=== PATIENT | male | born 1950 | race African-American/Black ===

== ENCOUNTER 2019-10-14 03:11 | Inpatient (IN) | payer OTHER ==
[2019-10-14] MEDS ORDERED: MORPHINE 4 MG/ML SYR ONE ×3 (03:27→14:18)
[2019-10-14] MEDS ORDERED: ONDANSETRON 4 MG/2 ML VIAL ONE ×3 (03:27→17:43)
[2019-10-14] MEDS ORDERED: FAMOTIDINE 20 MG/2 ML VIAL IV ONE (03:42)
[2019-10-14] MEDS ORDERED: CIPROFLOXACIN 400mg IV 400 MG/200 ML BAG IV ONE (03:42)
[2019-10-14] MEDS ORDERED: METRONIDAZOLE 500mg IVPB 500 MG/100 ML BAG IV ONE (03:42)
[2019-10-14 03:49] LABS: Protime INR 1.11
[2019-10-14 03:51] LABS: Absolute Lymphocytes (CBC) 0.9 K/uL (0.7-4.9); Basophils % 0.2 % (0-1.3); Hematocrit 43.2 % (39.6-49.0); Lymphocytes % 4.9 % (15.3-44.8); MPV 8.4 fL (7.6-11.3); RBC Red Blood Cell Count 4.72 M/uL (4.33-5.43)
[2019-10-14 04:04] LABS: ALT/SGPT 28 U/L (12-78); AST/SGOT 22 U/L (15-37); Albumin 4.1 g/dL (3.4-5.0); Alkaline Phosphatase 138 U/L (45-117); BUN Blood Urea Nitrogen 10 mg/dL (7-18); Bicarbonate 28 mmol/L (21-32); Bilirubin Direct 0.2 mg/dL (0-0.2); Bilirubin Total 0.5 mg/dL (0.2-1.0); Glucose Level 173 mg/dL (74-106); HDL Cholesterol 71 mg/dL (40-60); LDL Cholesterol, Calculated 57 (<130); Magnesium 1.9 mg/dL (1.8-2.4); NT PRO-BNP 19 pg/mL (<125); Potassium 3.6 mmol/L (3.5-5.1); Protein, Total 7.7 g/dL (6.4-8.2); Sodium Level 140 mmol/L (136-145); Troponin (Emerg Dept Use Only) < 0.02 ng/mL (0.0-0.045)
[2019-10-14 05:28] LABS: Blood Morphology Comment NOT SEEN (NOT SEEN); Platelet Estimate ADEQ; Urine White Blood Cell Casts OK
[2019-10-14] MEDS ORDERED: NA CHLORIDE 0.9% 2,000 ML ONE (06:16)
[2019-10-14] MEDS ORDERED: HYDROMORPHONE HCL 1 MG/ML INJ ONE ×2 (06:16→07:26)
[2019-10-14] MEDS ORDERED: PIPER/TAZO/NS 3.375gm 3.375 GM/100 ML BAG ONE (06:16)
--- NOTE | 2019-10-14 06:17 | EDPHYS ---
Physician Documentation [facility] Name: Bong Hanson Age: 68 yrs Sex: Male : 1950 Arrival Date: 10/14/2019 Time: 03:13 Bed 7 Private MD: ED Physician Venu Keene HPI: 10/14 03:29 This 68 yrs old Black Male presents to ER via Ambulatory with complaints of Abdominal charlee Pain. 03:29 The patient presents with abdominal pain in the upper abdomen, in the lower abdomen. charlee Onset: The symptoms/episode began/occurred 1 day(s) ago. The symptoms do not radiate. Associated signs and symptoms: none. The symptoms are described as achy. Modifying factors: The symptoms are alleviated by nothing. Severity of pain: At its worst the pain was moderate. The patient has not experienced similar symptoms in the past. Historical: - Allergies: 03:20 No Known Allergies; rr5 - Home Meds: 03:20 valsartan oral oral [Active]; amlodipine oral [Active]; atorvastatin oral oral rr5 [Active]; Tylenol #4 Oral [Active]; - PMHx: 03:20 Hypertension; Hyperlipidemia; rr5 - PSHx: 03:20 Appendectomy; prostate removed; rr5 - Immunization history:: Adult Immunizations up to date. - Social history:: Smoking status: Patient/guardian denies using tobacco, Patient/guardian denies using alcohol, street drugs. - Family history:: not pertinent. - Ebola Screening: : Patient negative for fever greater than or equal to 101.5 degrees Fahrenheit, and additional compatible Ebola Virus Disease symptoms Patient denies exposure to infectious person Patient denies travel to an Ebola-affected area in the 21 days before illness onset. ROS: 03:29 Constitutional: Negative for fever, chills, and weight loss, Eyes: Negative for injury, charlee pain, redness, and discharge, ENT: Negative for injury, pain, and discharge, Neck: Negative for injury, pain, and swelling, Cardiovascular: Negative for chest pain, palpitations, and edema, Respiratory: Negative for shortness of breath, cough, wheezing, and pleuritic chest pain, Back: Negative for injury and pain, : Negative for injury, bleeding, discharge, and swelling, MS/Extremity: Negative for injury and deformity, Skin: Negative for injury, rash, and discoloration, Neuro: Negative for headache, weakness, numbness, tingling, and seizure, Psych: Negative for depression, anxiety, suicide ideation, homicidal ideation, and hallucinations, Allergy/Immunology: Negative for hives, rash, and allergies, Endocrine: Negative for neck swelling, polydipsia, polyuria, polyphagia, and marked weight changes, Hematologic/Lymphatic: Negative for swollen nodes, abnormal bleeding, and unusual bruising. 03:29 Abdomen/GI: Positive for abdominal pain. Exam: 03:29 Constitutional: This is a well developed, well nourished patient who is awake, alert, charlee and in no acute distress. Head/Face: Normocephalic, atraumatic. Eyes: Pupils equal round and reactive to light, extra-ocular motions intact. Lids and lashes normal. Conjunctiva and sclera are non-icteric and not injected. Cornea within normal limits. Periorbital areas with no swelling, redness, or edema. ENT: Nares patent. No nasal discharge, no septal abnormalities noted. Tympanic membranes are normal and external auditory canals are clear. Oropharynx with no redness, swelling, or masses, exudates, or evidence of obstruction, uvula midline. Mucous membranes moist. Neck: Trachea midline, no thyromegaly or masses palpated, and no cervical lymphadenopathy. Supple, full range of motion without nuchal rigidity, or vertebral point tenderness. No Meningismus. Chest/axilla: Normal chest wall appearance and motion. Nontender with no deformity. No lesions are appreciated. Cardiovascular: Regular rate and rhythm with a normal S1 and S2. No gallops, murmurs, or rubs. Normal PMI, no JVD. No pulse deficits. Respiratory: Lungs have equal breath sounds bilaterally, clear to auscultation and percussion. No rales, rhonchi or wheezes noted. No increased work of breathing, no retractions or nasal flaring. Back: No spinal tenderness. No costovertebral tenderness. Full range of motion. Male : Normal genitalia with no discharge or lesions. Skin: Warm, dry with normal turgor. Normal color with no rashes, no lesions, and no evidence of cellulitis. MS/ Extremity: Pulses equal, no cyanosis. Neurovascular intact. Full, normal range of motion. Neuro: Awake and alert, GCS 15, oriented to person, place, time, and situation. Cranial nerves II-XII grossly intact. Motor strength 5/5 in all extremities. Sensory grossly intact. Cerebellar exam normal. Normal gait. Psych: Awake, alert, with orientation to person, place and time. Behavior, mood, and affect are within normal limits. 03:29 Abdomen/GI: Inspection: distension, Bowel sounds: diminished, Palpation: moderate abdominal tenderness, in all quadrants, Liver: no appreciated palpable abnormalities, Hernia: not appreciated. Vital Signs: 03:40 BP 161 / 92; Pulse 74; Resp 19; Temp 98.5; Pulse Ox 99% ; Weight 73.03 kg; Height 5 ft. rr5 5 in. (165.10 cm); Pain 10/10; 04:10 BP 167 / 84; Pulse 80; Resp 25; Pulse Ox 99% ; Pain 8/10; rr5 04:51 BP 151 / 74; Pulse 79; Resp 19; Pulse Ox 98% on R/A; rr5 06:00 BP 157 / 79; Pulse 88; Resp 17; Pulse Ox 98% ; Pain 10/10; rr5 06:56 BP 153 / 75; Pulse 85; Resp 16; Temp 99.3; Pulse Ox 99% ; Pain 5/10; rr5 07:35 BP 159 / 75; Pulse 95; Resp 30 S; Pulse Ox 97% on R/A; aa5 07:45 Resp 22 S; Pulse Ox 98% on R/A; Pain 7/10; aa5 03:40 Body Mass Index 26.79 (73.03 kg, 165.10 cm) rr5 MDM: 03:23 Patient medically screened. [facility] 03:31 Data reviewed: vital signs, nurses notes, lab test result(s), EKG, radiologic studies, charlee CT scan. 10/14 03:28 Order name: Basic Metabolic Panel; Complete Time: 05:16 [facility] 10/14 03:28 Order name: CBC with Diff; Complete Time: 05:53 [facility] 10/14 03:28 Order name: LFT's; Complete Time: 05:16 [facility] 10/14 03:28 Order name: Magnesium; Complete Time: 05:16 [facility] 10/14 03:28 Order name: NT PRO-BNP; Complete Time: 05:16 [facility] 10/14 03:28 Order name: PT-INR; Complete Time: 05:16 [facility] 10/14 03:28 Order name: Troponin (emerg Dept Use Only); Complete Time: 05:16 [facility] 10/14 03:28 Order name: XRAY Chest (1 view) [facility] 10/14 03:28 Order name: Lipid Profile; Complete Time: 05:16 [facility] 10/14 03:28 Order name: CT Abd/Pelvis - PO and IV Contrast [facility] 10/14 05:17 Order name: Lipase; Complete Time: 06:11 [facility] 10/14 05:28 Order name: CBC Smear Scan; Complete Time: 05:53 [facility] 10/14 03:28 Order name: EKG; Complete Time: 03:29 [facility] 10/14 03:28 Order name: Cardiac monitoring; Complete Time: 04:04 [facility] 10/14 03:28 Order name: EKG - Nurse/Tech; Complete Time: 04:04 [facility] 10/14 03:28 Order name: IV Saline Lock; Complete Time: 03:38 [facility] 10/14 03:28 Order name: Labs collected and sent; Complete Time: 03:38 [facility] 10/14 03:28 Order name: O2 Per Protocol; Complete Time: 03:38 [facility] 10/14 03:28 Order name: O2 Sat Monitoring; Complete Time: 03:38 charlee Administered Medications: 03:29 Drug: Zofran 4 mg Route: IVP; Site: right antecubital; rr5 04:30 Follow up: Response: No adverse reaction rr5 03:31 Drug: morphine 4 mg {Note: rass 0.} Route: IVP; Site: right antecubital; rr5 04:10 Follow up: Response: Other; RASS: Alert and Calm (0); pain came back. pain score 8/10 rr5 03:50 Drug: Pepcid 20 mg Route: IVP; Site: right antecubital; jd3 04:50 Follow up: Response: No adverse reaction rr5 03:51 Drug: Cipro 400 mg Volume: 200 ml; Route: IVPB; Infused Over: 60 mins; Site: right jd3 antecubital; 05:00 Follow up: Response: No adverse reaction; IV Status: Completed infusion; IV Intake: rr5 200ml 03:51 Drug: Flagyl 500 mg Volume: 100 ml; Route: IVPB; Rate: 200 ml/hr; Infused Over: 30 jd3 mins; Site: right antecubital; 04:10 Follow up: Response: No adverse reaction; IV Status: Completed infusion; IV Intake: rr5 100ml 04:10 Drug: morphine 4 mg {Note: rass 0.} Route: IVP; Site: right antecubital; rr5 05:10 Follow up: Response: No adverse reaction; Pain is decreased rr5 06:15 Dru.375 grams of (Zosyn 3.375 grams, NS 0.9% 100 ml) Route: IVPB; Infused Over: 30 rr5 mins; Site: right antecubital; 06:55 Follow up: Response: No adverse reaction; IV Status: Completed infusion; IV Intake: rr5 100ml 06:15 Drug: Zofran 4 mg Route: IVP; Site: right antecubital; rr5 06:55 Follow up: Response: No adverse reaction rr5 06:17 Drug: Dilaudid 1 mg {Note: rass 0.} Route: IVP; Site: right antecubital; rr5 06:55 Follow up: Response: No adverse reaction; Pain is decreased; RASS: Alert and Calm (0) rr5 06:20 Drug: NS 0.9% 1000 ml Route: IV; Rate: 1 bolus; Site: right antecubital; rr5 07:45 Follow up: IV Status: Completed infusion; IV Intake: 1000ml aa5 06:55 Drug: NS 0.9% 1000 ml Route: IV; Rate: 1 bolus; Site: right antecubital; rr5 07:45 Follow up: IV Status: Completed infusion; IV Intake: 1000ml aa5 07:30 Drug: Dilaudid 1 mg Route: IVP; Site: right antecubital; vc 07:40 Follow up: Response: No adverse reaction aa5 Disposition: 10/14/19 06:16 Hospitalization ordered by Daniel Siu for Inpatient Admission. Preliminary diagnosis are Abdominal tenderness, Cholelithiasis, Cholecystitis, Elevated white blood cell count. - Bed requested for Telemetry/MedSurg (Inpatient). - Status is Inpatient Admission. aa5 - Condition is Fair. - Problem is new. - Symptoms have improved. UTI on Admission? No Signatures: Dispatcher [employer] EDVenu Cerda MD MD cha Calderon, Audri RN RN aa5 Natalie Philip RN RN tl1 Jaiden Dodge RN RN jd3 Claus Swartz, RN RN rr5 Sindy Tilley, RN RN vc Corrections: (The following items were deleted from the chart) 06:30 06:16 Hospitalization Ordered by Daniel Siu MD for Inpatient Admission. Preliminary tl1 diagnosis is Abdominal tenderness; Cholelithiasis; Cholecystitis; Elevated white blood cell count. Bed requested for Telemetry/MedSurg (Inpatient). Status is Inpatient Admission. Condition is Fair. Problem is new. Symptoms have improved. UTI on Admission? No. charlee 07:52 06:30 10/14/2019 06:16 Hospitalization Ordered by Daniel Siu MD for Inpatient aa5 Admission. Preliminary diagnosis is Abdominal tenderness; Cholelithiasis; Cholecystitis; Elevated white blood cell count. Bed requested for Telemetry/MedSurg (Inpatient). Status is Inpatient Admission. Condition is Fair. Problem is new. Symptoms have improved. UTI on Admission? No. tl1
--- NOTE | 2019-10-14 06:17 | ER ---
Nurse's Notes [facility] Name: Bong Hanson Age: 68 yrs Sex: Male : 1950 Arrival Date: 10/14/2019 Time: 03:13 Bed 7 Private MD: Diagnosis: Abdominal tenderness;Cholelithiasis;Cholecystitis;Elevated white blood cell count Presentation: 10/14 03:20 Presenting complaint: Patient states: sudden severe abdominal pain started 3 hours ago rr5 with vomiting. denies diarrhea. pain score 10/10. 03:20 Transition of care: patient was not received from another setting of care. Onset of rr5 symptoms was October 14, 2019. Risk Assessment: Do you want to hurt yourself or someone else? Patient reports no desire to harm self or others. Initial Sepsis Screen: Does the patient meet any 2 criteria? No. Patient's initial sepsis screen is negative. Does the patient have a suspected source of infection? No. Patient's initial sepsis screen is negative. Care prior to arrival: None. 03:20 Method Of Arrival: Ambulatory rr5 03:20 Acuity: PEDRO 3 rr5 Historical: - Allergies: 03:20 No Known Allergies; rr5 - Home Meds: 03:20 valsartan oral oral [Active]; amlodipine oral [Active]; atorvastatin oral oral rr5 [Active]; Tylenol #4 Oral [Active]; - PMHx: 03:20 Hypertension; Hyperlipidemia; rr5 - PSHx: 03:20 Appendectomy; prostate removed; rr5 - Immunization history:: Adult Immunizations up to date. - Social history:: Smoking status: Patient/guardian denies using tobacco, Patient/guardian denies using alcohol, street drugs. - Family history:: not pertinent. - Ebola Screening: : Patient negative for fever greater than or equal to 101.5 degrees Fahrenheit, and additional compatible Ebola Virus Disease symptoms Patient denies exposure to infectious person Patient denies travel to an Ebola-affected area in the 21 days before illness onset. Screenin:00 Abuse screen: Denies threats or abuse. Denies injuries from another. Nutritional rr5 screening: No deficits noted. Tuberculosis screening: No symptoms or risk factors identified. Fall Risk IV access (20 points). Total Ashraf Fall Scale indicates No Risk (0-24 pts). Assessment: 03:30 General: Appears in no apparent distress. uncomfortable, ill, Behavior is cooperative, rr5 appropriate for age. 03:30 Pain: Complains of pain in abdomen Pain does not radiate. Pain currently is 10 out of rr5 10 on a pain scale. Quality of pain is described as aching, Pain began suddenly, 3 hours ago. Is intermittent. Neuro: Level of Consciousness is awake, alert, obeys commands, Oriented to person, place, time, situation, Appropriate for age. Cardiovascular: Capillary refill < 3 seconds Patient's skin is warm and dry. Respiratory: Airway is patent Respiratory effort is even, unlabored, Respiratory pattern is regular, symmetrical. GI: Abdomen is round Bowel sounds present X 4 quads. Abdomen is tender to palpation Guarding noted X 4 quads. Reports lower abdominal pain, upper abdominal pain, vomiting, Patient currently denies bloody stool, diarrhea. : No signs and/or symptoms were reported regarding the genitourinary system. EENT: No signs and/or symptoms were reported regarding the EENT system. Derm: Skin is intact, is healthy with good turgor, Skin temperature is warm. Musculoskeletal: Circulation, motion, and sensation intact. Capillary refill < 3 seconds. 03:50 Reassessment: Patient appears in no apparent distress at this time. Patient is alert, rr5 oriented x 3, equal unlabored respirations, skin warm/dry/pink. Patient states symptoms have improved. 04:10 Reassessment: pain came back pain score 8/10, ED provider aware with order made and rr5 carried out. 04:51 Reassessment: Patient appears in no apparent distress at this time. Patient is alert, rr5 oriented x 3, equal unlabored respirations, skin warm/dry/pink. awaiting for CT procedure. oral contrast consumed 0400 ct staff aware. Patient states feeling better. Patient states symptoms have improved. 05:50 Reassessment: Patient appears in no apparent distress at this time. Patient is alert, rr5 oriented x 3, equal unlabored respirations, skin warm/dry/pink. awaiting for results. 07:00 Reassessment: Patient appears in no apparent distress at this time. Patient and/or rr5 family updated on plan of care and expected duration. Pain level reassessed. Patient is alert, oriented x 3, equal unlabored respirations, skin warm/dry/pink. pain went down to 5/10 as verbalized by the patient. 07:01 Reassessment: Notified of wait time to be transported to room 419. Pt verbalized aa5 understanding. . 07:31 Reassessment: Patients respirations noted at 40 bpm, patient stated the pain is back vc and is a 10/10, Physician notified.. 07:38 Reassessment: Dr. Siu (surgeon) at bedside . aa5 07:52 Reassessment: Patient states feeling better. aa5 Vital Signs: 03:40 BP 161 / 92; Pulse 74; Resp 19; Temp 98.5; Pulse Ox 99% ; Weight 73.03 kg; Height 5 ft. rr5 5 in. (165.10 cm); Pain 10/10; 04:10 BP 167 / 84; Pulse 80; Resp 25; Pulse Ox 99% ; Pain 8/10; rr5 04:51 BP 151 / 74; Pulse 79; Resp 19; Pulse Ox 98% on R/A; rr5 06:00 BP 157 / 79; Pulse 88; Resp 17; Pulse Ox 98% ; Pain 10/10; rr5 06:56 BP 153 / 75; Pulse 85; Resp 16; Temp 99.3; Pulse Ox 99% ; Pain 5/10; rr5 07:35 BP 159 / 75; Pulse 95; Resp 30 S; Pulse Ox 97% on R/A; aa5 07:45 Resp 22 S; Pulse Ox 98% on R/A; Pain 7/10; aa5 03:40 Body Mass Index 26.79 (73.03 kg, 165.10 cm) rr5 ED Course: 03:13 Patient arrived in ED. as 03:16 Claus Swartz, HUSAM is Primary Nurse. rr5 03:23 Venu Keene MD is Attending Physician. charlee 03:24 Triage completed. rr5 03:28 Inserted saline lock: 20 gauge in right antecubital area, using aseptic technique. rr5 Blood collected. 03:52 Arm band placed on. rr5 03:55 Patient has correct armband on for positive identification. Placed in gown. Bed in low rr5 position. Call light in reach. Side rails up X2. applications administrator on. Pulse ox on. NIBP on. 04:00 XRAY Chest (1 view) In Process Unspecified. EDMS 05:30 CT Abd/Pelvis - PO and IV Contrast In Process Unspecified. EDMS 06:14 Ten Blount MD is Hospitalizing Provider. charlee 06:16 Daniel Siu MD is Hospitalizing Provider. charlee 06:36 No provider procedures requiring assistance completed. Patient admitted, IV remains in rr5 place. intact, No redness/swelling at site. Administered Medications: 03:29 Drug: Zofran 4 mg Route: IVP; Site: right antecubital; rr5 04:30 Follow up: Response: No adverse reaction rr5 03:31 Drug: morphine 4 mg {Note: rass 0.} Route: IVP; Site: right antecubital; rr5 04:10 Follow up: Response: Other; RASS: Alert and Calm (0); pain came back. pain score 8/10 rr5 03:50 Drug: Pepcid 20 mg Route: IVP; Site: right antecubital; jd3 04:50 Follow up: Response: No adverse reaction rr5 03:51 Drug: Cipro 400 mg Volume: 200 ml; Route: IVPB; Infused Over: 60 mins; Site: right jd3 antecubital; 05:00 Follow up: Response: No adverse reaction; IV Status: Completed infusion; IV Intake: rr5 200ml 03:51 Drug: Flagyl 500 mg Volume: 100 ml; Route: IVPB; Rate: 200 ml/hr; Infused Over: 30 jd3 mins; Site: right antecubital; 04:10 Follow up: Response: No adverse reaction; IV Status: Completed infusion; IV Intake: rr5 100ml 04:10 Drug: morphine 4 mg {Note: rass 0.} Route: IVP; Site: right antecubital; rr5 05:10 Follow up: Response: No adverse reaction; Pain is decreased rr5 06:15 Dru.375 grams of (Zosyn 3.375 grams, NS 0.9% 100 ml) Route: IVPB; Infused Over: 30 rr5 mins; Site: right antecubital; 06:55 Follow up: Response: No adverse reaction; IV Status: Completed infusion; IV Intake: rr5 100ml 06:15 Drug: Zofran 4 mg Route: IVP; Site: right antecubital; rr5 06:55 Follow up: Response: No adverse reaction rr5 06:17 Drug: Dilaudid 1 mg {Note: rass 0.} Route: IVP; Site: right antecubital; rr5 06:55 Follow up: Response: No adverse reaction; Pain is decreased; RASS: Alert and Calm (0) rr5 06:20 Drug: NS 0.9% 1000 ml Route: IV; Rate: 1 bolus; Site: right antecubital; rr5 07:45 Follow up: IV Status: Completed infusion; IV Intake: 1000ml aa5 06:55 Drug: NS 0.9% 1000 ml Route: IV; Rate: 1 bolus; Site: right antecubital; rr5 07:45 Follow up: IV Status: Completed infusion; IV Intake: 1000ml aa5 07:30 Drug: Dilaudid 1 mg Route: IVP; Site: right antecubital; vc 07:40 Follow up: Response: No adverse reaction aa5 Intake: 04:10 IV: 100ml; Total: 100ml. rr5 05:00 IV: 200ml; Total: 300ml. rr5 06:55 IV: 100ml; Total: 400ml. rr5 07:45 IV: 1000ml; Total: 1400ml. aa5 07:45 IV: 1000ml; Total: 2400ml. aa5 Outcome: 06:16 Decision to Hospitalize by Provider. [facility] 07:52 Admitted to Med/surg accompanied by tech, via stretcher, with chart, Report called to aaCatherine Mclain RN 07:52 Condition: stable 07:52 Discharge instructions given to patient, Instructed on the need for admit, Demonstrated understanding of instructions. 07:52 Patient left the ED. aa5 Signatures: [facility] Venu Keene MD MD cha Martinez, Amelia as Calderon, Audri RN RN aa5 Jaiden Dodge RN RN jd3 Roque, Raymond, RN RN rr5 Sindy Tilley RN RN vc Corrections: (The following items were deleted from the chart) 07:52 07:40 Admitted to Med/surg accompanied by tech, via stretcher, with chart, Report aa5 called to HUSAM Mclain 07:52 07:40 Condition: stable aa5 aa5 07:52 07:40 Discharge instructions given to patient, Instructed on the need for admit, aa5 Demonstrated understanding of instructions, aa5
--- NOTE | 2019-10-14 07:01 | EKG ---
Test Date: 2019-10-14 Test Time: 04:02:34 Director Of Rehabilitative Services: RR MEASUREMENT RESULTS: Intervals: Rate: 86 CA: 122 QRSD: 72 QT: 378 QTc: 452 [place]: P: 67 CA: 122 QRS: 48 T: -1 INTERPRETIVE STATEMENTS: Normal sinus rhythm with sinus arrhythmia ST & T wave abnormality, non specific Abnormal ECG Compared to ECG 10/09/2005 14:06:00 Possible ischemia now present Sinus bradycardia no longer present ST (T wave) deviation still present Electronically Signed On 10-14-19 07:00:59 SULFATE DRIER MACHINE OPERATOR by Escobar Hoffmann
[2019-10-14 08:19] VITALS: BMI 26.9
[2019-10-14] MEDS ORDERED: ACETAMINOPHEN 325 MG TABLET PO PRN (08:19)
[2019-10-14] MEDS ORDERED: MORPHINE 4 MG/ML SYR IV PRN (08:19)
[2019-10-14] MEDS ORDERED: ONDANSETRON 4 MG/2 ML VIAL IV PRN (08:19)
--- NOTE | 2019-10-14 08:48 | RAD REPORT ---
EXAM DESCRIPTION: RAD - Chest Single View - 10/14/2019 3:59 am CLINICAL HISTORY: ABDOMINAL DISTENTION Chest pain. COMPARISON: No comparisons FINDINGS: Portable technique limits examination quality. The lungs are grossly clear. The heart is normal in size. No displaced fractures. IMPRESSION: No acute intrathoracic process suspected.
[2019-10-14] MEDS: D5 0.45 NS 1,000 ML IV SCH ×2 (08:49→16:19)
[2019-10-14] MEDS ORDERED: FAMOTIDINE 20 MG/2 ML VIAL IV SCH (09:00)
--- NOTE | 2019-10-14 10:38 | RAD REPORT ---
EXAM DESCRIPTION: CT Abdomen and Pelvis With Intravenous Contrast CLINICAL HISTORY: The patient is 68 years old and is Male; ABD PAIN TECHNIQUE: Axial computed tomography images of the abdomen and pelvis with intravenous contrast. S agittal and coronal reformatted images were created and reviewed. This CT exam was performed using one or more of the following dose reduction techniques: automated exposure control, adjustment of t he mA and/or kV according to patient size, and/or use of iterative reconstruction technique. COMPARISON: No relevant prior studies available. FINDINGS: LUNG BASES: Minimal dependent densities in the lung bases are present. ABDOMEN: LIVER: The liver is mildly fatty. GALLBLADDER AND BILE DUCTS: The gallbladder is distended. Pericholecystic inflammation and gallb ladder wall thickening is present. A calcified gallstone is present within the neck of the gallbladde r. PANCREAS: No ductal dilation. No mass. SPLEEN: Unremarkable. ADRENALS: Unremarkable. No mass. KIDNEYS AND URETERS: Unremarkable. The kidneys enhance symmetrically. No obstructing renal or ur eteral calculus is seen. No hydronephrosis or hydroureter. No perinephric fluid or stranding. STOMACH AND BOWEL: The stomach is distended with oral contrast. Oral contrast is noted within th e proximal duodenum. The remainder the small bowel is decompressed. Minimal stool is noted throughout the colon. Scattered colonic diverticula are present without surrounding inflammation. There is no b owel obstruction. PELVIS: APPENDIX: No findings to suggest acute appendicitis. BLADDER: The bladder is not well distended. REPRODUCTIVE: Evidence of prostatectomy is noted. ABDOMEN and PELVIS: INTRAPERITONEAL SPACE: Unremarkable. No free air. No significant fluid collection. BONES/JOINTS: No acute fracture. SOFT TISSUES: The soft tissues are normal. VASCULATURE: Unremarkable. No abdominal aortic aneurysm. LYMPH NODES: Unremarkable. No enlarged lymph nodes. IMPRESSION: 1. Gallstone present within the neck of the gallbladder with resultant gallbladder dil atation, pericholecystic inflammation and fluid. Findings suggest acute cholecystitis. Further evalua tion with ultrasound and/or HIDA scan could be performed. 2. Colonic diverticulosis. Electronically signed by: Kristi Giang MD 10/14/2019 6:00 AM WELL SURVEYING ENGINEER Due to temporary technical issues with the PACS/Fluency reporting system, reports are being signed by the in house radiologist as a courtesy to ensure prompt reporting. The interpreting radiologist is f ully responsible for the content of the report.
[2019-10-14] MEDS ORDERED: PIPER/TAZO/NS 3.375gm 3.375 GM/100 ML BAG IVPB SCH (11:00)
[2019-10-14] MEDS ORDERED: Ringers Lactate 1,000 ML IV ONE (12:13)
[2019-10-14] MEDS: PIPER/TAZO/NS 3.375gm 3.375 GM/100 ML BAG IVPB SCH ×2 (12:42→18:00)
[2019-10-14] MEDS ORDERED: PROPOFOL 200 MG/20 ML VIAL IV ONE (16:21)
[2019-10-14] MEDS ORDERED: MIDAZOLAM HCL 2 MG/2 ML INJ ONE (16:21)
[2019-10-14] MEDS ORDERED: LIDOCAINE 1% MPF 5 ML VIAL ONE (16:21)
[2019-10-14] MEDS ORDERED: FENTANYL CITR 250 MCG/5 ML ONE (16:21)
[2019-10-14] MEDS ORDERED: ROCURONIUM 50 MG/5 ML VIAL IV ONE ×2 (16:21→18:40)
[2019-10-14] MEDS ORDERED: BUPIVACA 0.5%/EPI 0.0005%/PF 30 ML VIAL ONE (16:33)
[2019-10-14] MEDS ORDERED: GLYCOPYRROLATE 0.2 MG/ML SYR ONE (17:43)
[2019-10-14] MEDS ORDERED: KETOROLAC 30 MG/ML INJ ONE (17:43)
[2019-10-14] MEDS ORDERED: NEOSTIGMINE 1 MG/ML -10 ML VIAL ONE (17:43)
--- NOTE | 2019-10-14 18:57 | P.OP ---
Preoperative diagnosis: Acute Cholecystitis Postoperative diagnosis: Gangrenous Cholecystitis Primary procedure: Laparoscopic Cholecystectomy Secondary procedure: Laparoscopic Adhesiolysis Anesthesia: GETA + Local Estimated blood loss: <50cc Specimen: Gallbladder Findings: Gangrenous GB, Intrahepatic, short cystic duct, bile staining Complications: None Transferred to: Recovery Room Condition: Good
[2019-10-14] MEDS ORDERED: HYDROMORPHONE HCL 1 MG/ML INJ IV PRN (19:20)
[2019-10-14] MEDS: Ringers Lactate 1,000 ML IV SCH (20:39)
[2019-10-14] MEDS: INSULIN -REGULAR HUMAN 50 UNIT/0.5 ML ML SQ SCH (20:40)
--- NOTE | 2019-10-14 21:01 | HP ---
Date of Admission: 10/14/2019 Brief History Of Present Illness: Patient is a 68-year-old black man who presents to the hospital wi th approximately 1-day history of epigastric abdominal pain with radiation to bilateral upper quadran ts. He states this happened shortly after 2:00 p.m. after eating his meal, which was gumbo. The alysia n became sharp, stabbing and was localized to the epigastric and right upper quadrant. He has not mart d similar episodes before in the past. There are no other aggravating or alleviating factors. It wa s associated with nausea, vomiting, but no change in bowel or bladder habits. His pain is similar to his onset here in the ER despite medical treatment and it continues to be in similar character and q uality. Past Medical History: Significant for hypertension, hyperlipidemia, prostate cancer. Past Surgical History: He has had appendectomy and robotic prostatectomy. Home Medications: Valsartan, amlodipine, atorvastatin, and Tylenol No. 4. Social History: He denies smoking, alcohol, or recreational drug use. Review of Systems: A 10-point review of systems other than HPI, denies. Physical Examination: Vital Signs: At the time of my examination, his BMI is 27, his blood pressure 162/74, pulse is 91, r espiratory rate 17, temperature 100.0. General: He is awake, alert, and oriented. Psychiatric: He is appropriate and conversive. He appears mildly in discomfort HEENT: Otherwise no rmocephalic. Sclerae icteric. Mucous membranes moist. Oropharynx clear. Neck: Supple. No JVD. Chest: Normal expansion and excursion. Cardiovascular: Regular rate and rhythm. Pulmonary: Clear to auscultation bilaterally. Abdomen: Soft with positive right upper quadrant and epigastric tenderness to palpation. He has a w ell-healed surgical scars. He has a paramedian right lower quadrant incision extending up to the per iumbilical area. He additionally has a periumbilical incision near the midline as well. Both of the se are well healed. He has laparoscopic scars in the upper abdomen as well in the right upper quadra nt. Extremities: No clubbing, cyanosis, or edema. Skin: Warm and dry. Laboratory Data: Reveals a white blood cell count of 18.9, hemoglobin is 14.5 over hematocrit of 43. 2, platelet count is 244, neutrophils 90%. His PT 13.1, INR 1.11. Sodium 140, potassium 3.6, chlori de 104, carbon dioxide 28, BUN 10, creatinine 1.17, glucose 173. Lactic acid is currently pending. Calcium 8.9, total bilirubin 0.5, direct bilirubin 0.2, AST 22, ALT 28, alkaline phosphatase is 138, troponin less than 0.02. His lipase is 36. He had a CT scan performed of the abdomen and pelvis, wh ich showed gallstones with a stone in the neck of the gallbladder along with pericholecystic fluid co nsistent with acute cholecystitis. Assessment And Plan: This is a 68-year-old male who comes in with signs and symptoms of acute calcul ous cholecystitis. 1.IV fluid hydration. 2.Antibiotic coverage. 3.I have explained risks, benefits, and alternatives of laparoscopic, possible open cholecystectomy including, but not limited to bleeding, infection, damage to surrounding tissues, injury to bile duct s, intestines, need for further operation and procedures. The patient agrees to proceed as indicated . PARKER/BETTIE Voice ID: [id number]
[2019-10-14] MEDS: HYDROCODONE/APAP 7.5/325 MG TAB PO PRN (22:20)
[2019-10-15] MEDS: HYDROCODONE/APAP 7.5/325 MG TAB PO PRN ×2 (02:32→09:46)
[2019-10-15 05:51] LABS: Albumin 2.7 g/dL (3.4-5.0); Bilirubin Total 0.6 mg/dL (0.2-1.0); Magnesium 1.7 mg/dL (1.8-2.4); Phosphorus 2.1 mg/dL (2.5-4.9); Potassium 3.9 mmol/L (3.5-5.1); Protein, Total 5.8 g/dL (6.4-8.2)
[2019-10-15] MEDS: Ringers Lactate 1,000 ML IV SCH (06:35)
[2019-10-15] MEDS: INSULIN -REGULAR HUMAN 50 UNIT/0.5 ML ML SQ SCH ×2 (07:30→11:30)
--- NOTE | 2019-10-15 08:09 | OP ---
Date of Procedure: 10/14/2019 Surgeon: Daniel Siu MD, Postoperative Diagnosis: Acute calculous cholecystitis. Postoperative Diagnosis: Acute calculous gangrenous cholecystitis. Procedure: Laparoscopic cholecystectomy and laparoscopic adhesiolysis. Anesthesia: General endotracheal plus local 0.5% Marcaine with epinephrine. Estimated Blood Loss: Less than 50 mL. Specimen: Gallbladder. Findings: 1. Gangrenous gallbladder. 2. Intrahepatic gallbladder. 3. Short cystic duct. 4. Bile staining to omentum. 5. Patient had significant intraabdominal adhesions from prior surgery requiring extensive adhesiolysis. 6. Patient's gallbladder was completely encased in omentum requiring additional adhesiolysis. Disposition: Transferred to recovery room in good condition. Complications: No complications. Procedure In Detail: After informed was obtained patient was brought to the operating room prepped draped in the usual sterile fashion. After adequate anesthesia achieved, the supraumbilical area was anesthetized with 0.5% Marcaine , sharply incised. A 5-mm trocar was introduced into the abdomen without complication. Insufflation was obtained to 15 mmHg. At this time, the area was inspected. There was no injury to vital structures. There was significant intraabdominal adhesions of omentum to anterior abdominal wall. Additional trocar site was chosen in the epigastrium and 2 in the right upper quadrant, this was similarly anesthetized, sharply incised and a 5 mm trocars were introduced in the abdomen without evidence of complication. The umbilical trocar was then up-sized to a 12 mm under direct visualization without evidence of complication. The patient was positioned head up right-side up position. Ratcheted grasper was used to attempt to place a grasper. Patient's omentum removed from the anterior surface of the gallbladder. Bowel staining was appreciated at this point immediately and dissection continued down using both blunt and sharp dissection as well as electrocautery to remove the omentum from the anterior surface of the gallbladder using the LigaSure device as well. After the gallbladder was evaluated at this point, a decompression needle was brought in and decompressed the gallbladder as it was very difficult to grasp and manipulate due to significant tension and distention. After this was completed, I dissected the Lexie pouch to the gallbladder to expose a very short cystic duct and a cystic artery which had a confluence where the cystic artery was crossing up over the cystic duct as the gallbladder had a lateral orientation on the hepatic bed. Dissection continued around these 2 structures to get the critical view of safety. At this point, double titanium clips were placed on both the proximal side as well as the distal side of both the cystic duct and cystic artery and the 2 structures were ligated. The cystic artery was ligated with the LigaSure device in between the clips and the cystic duct was ligated with Endo Freddie and the cystic artery was ligated using the LigaSure device between the clips. At this point, the gallbladder was removed from the hepatic fossa which was found to be intrahepatic, requiring additional hemostatic measures throughout the procedure. The gallbladder was removed in its entirety, placed in EndoCatch bag and removed from the umbilical trocar, was sent off for pathologic examination. The abdomen was copiously irrigated multiple times until completely clear. Hemostatic measures were required to fulgurate the bed of the gallbladder. At this point, the area was copiously irrigated multiple times with several liters of saline and the patient was repositioned multiple times until I suctioned out all of the effluent. I inspected the surgical site once again, and no additional hemostatic maneuvers were required. EndoClips were found to be good anatomic position without any bile staining or leakage of bile at this point. I then positioned the patient in neutral position and removed the umbilical trocar and closed the umbilical trocar site with a 0 Vicryl in interrupted fashion using a Christophe-Marc suture passer with good approximation of tissues. I then completed desufflated abdomen under direct visualization and removed all the remaining trocars under direct visualization without evidence of complication. All skin incisions copiously irrigated and closed with a 4-0 Monocryl in a running fashion. Dermabond placed over top. Patient tolerated the procedure well without evidence of complication and transferred to the PACU in good condition. All counts were correct at the end the case. PARKER/BETTIE Voice ID: [id number] Report ID: [id number] ROCHELLE
[2019-10-15 09:08] VITALS: O2SAT 95
--- NOTE | 2019-10-15 11:44 | P.DS ---
Admission Date: 10/14/19 Discharge Date: 10/15/19 Disposition: ROUTINE DISCHARGE Discharge Condition: GOOD Procedures: Laparoscopic Cholecystectomy Brief History of Present Illness: Patient presented earlier in Day with acute cholecystitis Hospital Course: Patient taken to OR for lap cholecystectomy, it was complicated by gangrenous cholecystitis and intra-abdominal adhesions. He did well after surgery, labs normal, ambulatory, minimal discomfort, tolerated diet. Vital Signs/Physical Exam: Temp Pulse Resp BP Pulse Ox 98.4 F 75 18 144/78 H 96 10/15/19 08:00 10/15/19 08:00 10/15/19 09:46 10/15/19 08:00 10/15/19 09:46 General: Alert, In no apparent distress, Cooperative HEENT: Mucous membr. moist/pink Respiratory: Clear to auscultation bilaterally, Normal air movement Cardiovascular: Regular rate/rhythm Gastrointestinal: Other (soft, mild appropriate TTP, ND, incisions clean and dry ) Neurological: Normal speech Laboratory Data at Discharge: WBC 18.9 K/uL (4.3-10.9) H 10/14/19 03:35 Hgb 14.5 g/dL (13.6-17.9) 10/14/19 03:35 Hct 43.2 % (39.6-49.0) 10/14/19 03:35 Plt Count 244 K/uL (152-406) 10/14/19 03:35 PT 13.1 SECONDS (9.5-12.5) H 10/14/19 03:35 INR 1.11 10/14/19 03:35 Sodium 141 mmol/L (136-145) 10/15/19 05:02 Potassium 3.9 mmol/L (3.5-5.1) 10/15/19 05:02 BUN 12 mg/dL (7-18) 10/15/19 05:02 Creatinine 1.15 mg/dL (0.55-1.3) 10/15/19 05:02 Glucose 104 mg/dL (74-106) 10/15/19 05:02 Phosphorus 2.1 mg/dL (2.5-4.9) L 10/15/19 05:02 Magnesium 1.7 mg/dL (1.8-2.4) L 10/15/19 05:02 Total Bilirubin 0.6 mg/dL (0.2-1.0) 10/15/19 05:02 AST 70 U/L (15-37) H 10/15/19 05:02 ALT 46 U/L (12-78) 10/15/19 05:02 Alkaline Phosphatase 84 U/L (45-117) 10/15/19 05:02 Triglycerides 56 mg/dL (<150) 10/14/19 03:35 Cholesterol 139 mg/dL (<200) 10/14/19 03:35 HDL Cholesterol 71 mg/dL (40-60) H 10/14/19 03:35 Cholesterol/HDL Ratio 1.96 10/14/19 03:35 Lipase 36 U/L (73-393) L 10/14/19 03:35 Home Medications: Amlodipine [Norvasc*] 1 tab PO DAILY 10/14/19 Atorvastatin Calcium 1 tab PO BEDTIME 10/14/19 Valsartan/Hydrochlorothiazide [Valsartan-Hctz 160-12.5 mg Tab] 1 tab PO DAILY Diet: [place] Activity: No lifting more than 10 lbs Followup: Daniel Siu MD [ACTIVE - CAN ADMIT] -
[2019-10-15] MEDS ORDERED: INFLUENZA VACCINE (for 3y+) 0.5 ML DOSE IMVAC ONE (12:00)
[2019-10-15] MEDS ORDERED: PNEUMOCOCCAL VACCINE 0.5 ML IMVAC ONE (12:00)
[2019-10-15 14:32] VITALS: BP 163/84; TEMP 97
== END 2019-10-15 12:56 | disposition home or self-care (01) | DRG 419 ==
LOC: ER 03:11 → ERHOLD 06:34 → 4TH 07:36
PROVIDERS: ADMIT Surgery; ATTEND Surgery
PROC: 0DNW4ZZ Release Peritoneum, Percutaneous Endoscopic Approach (ICD-10-PCS; 2019-10-14)
PROC: 0FT44ZZ Resection of Gallbladder, Percutaneous Endoscopic Approach (ICD-10-PCS; principal; 2019-10-14 14:45)
DX: K80.00 Calculus of gallbladder with acute cholecystitis without obstruction (principal); K82.8 Other specified diseases of gallbladder; K82.A1 Gangrene of gallbladder in cholecystitis; I10 Essential (primary) hypertension; E78.5 Hyperlipidemia, unspecified; Z85.46 Personal history of malignant neoplasm of prostate
CPT/HCPCS: 36415; 71045; 74177; 80048; 80053; 80061; 80076; 82947; 83605; 83690; 83735; 83880; 84100; 84484; 85025; 85610; 88304; 93005; 94760; 96361; 96365; 96367; 96368; 96375; 99285; J0744; J1170; J2250; J2405; J2543; J2704; J2710; J3010; J7030; J7120; J7799; Q9967

== ENCOUNTER 2025-01-29 09:42 | Emergency (ER) | payer OTHER ==
--- NOTE | 2025-01-29 10:04 | RAD REPORT ---
EXAM: CT Ct Stroke Brain Wo Cont HISTORY: STROKE ALERT COMPARISON: None TECHNIQUE: Multiple contiguous axial images were obtained for a CT of the brain without contrast. Sag ittal and coronal reformats were performed. One or more of the following dose reduction techniques were used: Automated exposure control, adjustment of the mA and kV according to patient size, and ite rative reconstruction. Unless otherwise specified, incidental findings do not require dedicated imaging follow-up. FINDINGS: No evidence of hydrocephalus, intracranial hemorrhage, or extra-axial fluid collection. Small hypodense focus adjacent to the left caudate head. Barrera-white matter differentiation otherwise intact. The calvarium is intact. The visualized paranasal sinuses and mastoid air cells are essentially clear . IMPRESSION: Small hypodense focus adjacent to the left caudate head, may represent a small infarct of indetermina te age. THIS REPORT CONTAINS FINDINGS THAT MAY BE CRITICAL TO PATIENT CARE. The findings were verbally commun icated via telephone to Karthik Kidd on 01/29/2025 10:00 AM.
[2025-01-29 10:16] LABS: Absolute Basophils 0.1 K/uL (0-0.5); Absolute Eosinophils 0.4 K/uL (0-0.5); Absolute Lymphocytes (CBC) 2.1 K/uL (0.7-4.9); Absolute Monocytes 0.8 K/uL (0.1-1.3); Absolute Neutrophil 3.8 K/uL (1.8-8.0); Basophils % 1.1 % (0-1.3); Eosinophils % 4.9 % (0-4.4); Hematocrit 46.3 % (39.6-49.0); Hemoglobin 15.8 g/dL (13.6-17.9); Lymphocytes % 29.7 % (15.3-44.8); MCH 31.1 pg (27.0-35.0); MCHC 34.1 g/dL (32.0-36.0); MPV 8.2 fL (7.6-11.3); Monocytes % 10.9 % (3.3-12.3); Neutrophils % 53.4 % (41.7-73.7); Nucleated Red Blood Cells % 0.1 % (0-0); Platelets 235 thou/uL (152-406); RBC Red Blood Cell Count 5.08 M/uL (4.33-5.43); Red Cell Distribution Width 13.9 % (12.1-15.2)
[2025-01-29 10:24] LABS: PT Prothrombin Time 12.6 SECONDS (10-13.0); Protime INR 1.11
[2025-01-29 10:25] LABS: PTT, Activated Partial Thromb 30.8 SECONDS (27.2-37.4)
[2025-01-29] MEDS ORDERED: TENECTEPLASE 50 MG/10 ML VIAL IV ONE (10:30)
[2025-01-29 10:39] LABS: Albumin 3.7 g/dL (3.4-5.0); Anion Gap 7.8 mEq/L (5.0-15.0); Bilirubin Direct 0.3 mg/dL (0-0.2); Bilirubin Indirect, Calculated 0.6 mg/dL (0.2-0.8); Bilirubin Total 0.9 mg/dL (0.2-1.0); Globulin 3.7 g/dL (2.3-3.5); Potassium 3.8 mEq/L (3.5-5.1); Protein, Total 7.4 g/dL (6.4-8.2); Troponin High Sensitivity 10.8 pg/mL (<58.9)
--- NOTE | 2025-01-29 10:44 | RAD REPORT ---
EXAMINATION: CTA HEAD CLINICAL INDICATION: Male, 74 years old. STROKE ALERT TECHNIQUE: Axial CT images were obtained through the head after intravenous contrast utilizing angiog raphic protocol with 3D post-processing (maximum intensity projection images, volume rendered images and/or shaded surface rendered images). One or more of the following dose reduction technique s were used: Automated exposure control, adjustment of the mA and/or kV according to patient size, and/or iterative reconstruction. Unless otherwise specified, incidental findings do not require dedic ated imaging follow-up. COMPARISON: Noncontrast head CT of the same day FINDINGS: ICA: The petrous, cavernous, and supraclinoid segments of the bilateral internal carotid arteries are normal. DAVID: Anterior cerebral arteries are normal bilaterally. The anterior communicating artery is patent. MCA: Middle cerebral arteries are normal bilaterally. AVIATION MEDICINE SPECIALIST: Posterior cerebral arteries are normal bilaterally. Vertebrobasilar: The vertebral arteries are patent. The basilar artery is normal in appearance. 3D images confirm these findings. IMPRESSION: No evidence of large vessel occlusion or hemodynamically significant stenosis.
--- NOTE | 2025-01-29 10:54 | ER ---
Nurse's Notes [facility] Name: Bong Hanson Age: 74 yrs Sex: Male : 1950 Arrival Date: 01/29/2025 Time: 09:42 Bed 7 Private MD: Diagnosis: Acute CVA status post thrombolytics Presentation: 01/29 09:45 Chief complaint: Patient states: slurred speech that began 20 minutes prior to arrival ss while at [employer]. Pt's only other complaint is mild nausea. Reports he took a multivitamin this morning on an empty stomach. Coronavirus screen: Client denies travel out of the [place] in the last 14 days. Ebola Screen: Patient denies exposure to infectious person. Patient denies travel to an Ebola-affected area in the 21 days before illness onset. Risk Assessment: Do you want to hurt yourself or someone else? Patient reports no desire to harm self or others. Onset of symptoms was January 29, 2025 at 09:25. 09:45 Method Of Arrival: Ambulatory ss 09:45 Acuity: PEDRO 2 ss 09:52 Pre-hospital glucose is not applicable to this patient. Initial Sepsis Screen: Does the ss patient meet any 2 criteria? No. Patient's initial sepsis screen is negative. Does the patient have a suspected source of infection? No. Patient's initial sepsis screen is negative. Triage Assessment: 09:43 The onset of the patients symptoms was January 29, 2025 at 09:25. General: Appears in no ss apparent distress. comfortable, Behavior is calm, cooperative, Reports mild fatigue that began this morning Denies fever, feeling ill, chills. General: VAN score NEGATIVE. Pain: Denies pain. Neuro: Level of Consciousness is awake, alert, obeys commands, Oriented to person, place, time, situation, Fringe Knotter are equal bilaterally Moves all extremities. Full function Gait is steady, Speech mild slurring of speech noted. . Facial symmetry appears normal, Pupils are PERRLA, Intact Denies weakness blurred vision dizziness, numbness headache. Respiratory: Airway is patent Respiratory effort is even, unlabored, Respiratory pattern is regular, symmetrical. GI: Reports mild nausea. Derm: Skin is intact, is healthy with good turgor, Skin is dry, Skin is pink, warm \T\ dry. normal. Musculoskeletal: Range of motion: Swelling absent. Stroke Activation: Physician: ED Attending; Name: Chinmay; Notified At: 09:44; Arrived At: Physician: Mid-Level Provider; Name: ; Notified At: 09:44; Arrived At: Physician: [not used]; Name: ; Notified At: ; Arrived At: Physician: [not used]; Name: ; Notified At: ; Arrived At: Physician: [not used]; Name: ; Notified At: ; Arrived At: Historical: - Allergies: 10:00 No Known Allergies; ss - Home Meds: 12:10 amlodipine 5 mg oral tablet daily [Active]; valsartan 160 mg oral tablet daily aa5 [Active]; atorvastatin 20 mg oral tablet daily [Active]; tadalafil 5 mg oral tablet daily [Active]; - PMHx: 10:00 Hyperlipidemia; Hypertension; ss - PSHx: 10:00 Cholecystectomy; Appendectomy; prostatectomy; ss 12:13 ear (w/metal); aa5 - Infectious Disease History:: Denies. - Social history:: Smoking status: Patient denies any tobacco usage or history of. Screenin:17 Abuse screen: Denies threats or abuse. Denies injuries from another. Nutritional ss screening: No deficits noted. Tuberculosis screening: Never had TB. 10:24 [facility] ED Fall Risk Assessment (Adult) History of falling in the last 3 months, ss including since admission No falls in past 3 months (0 pts) Confusion or Disorientation No (0 pts) Intoxicated or Sedated No (0 pts) Impaired Gait No (0 pts) Mobility Assist Device Used No (0 pt) Altered Elimination No (0 pt) Score/Fall Risk Level 0 - 2 = Low Risk. Assessment: 09:43 VAN Scoring: Arm Drift: Patients demonstrates NO arm weakness. Patient is VAN Negative. ss Visual Disturbance: No visual disturbance noted. Aphasia: No aphasia noted. Neglect: No neglect noted. 09:45 Reassessment: CODE STROKE CALLED Pt straight to CT at this time VIA wheelchair with ojs Peña RN. 09:52 Reassessment: Pt back from CT at this time. Dr. Kidd at bedside discussing Plan of ss care, possible TNK administration including risks with patient and . 10:00 General: Appears in no apparent distress. comfortable, Behavior is calm, cooperative. aa5 Pain: Denies pain. Neuro: Level of Consciousness is awake, alert, obeys commands, Oriented to person, place, time, situation, Fringe Knotter are equal bilaterally Moves all extremities. Speech is slurred, Facial symmetry appears normal, Denies weakness blurred vision dizziness, difficulty swallowing, paresthesias numbness headache photophobia diplopia. Cardiovascular: Heart tones S1 S2 present Rhythm is regular. Respiratory: Airway is patent Respiratory effort is even, unlabored, Respiratory pattern is regular, symmetrical. GI: No signs and/or symptoms were reported involving the gastrointestinal system. : No signs and/or symptoms were reported regarding the genitourinary system. EENT: No signs and/or symptoms were reported regarding the EENT system. Derm: Skin is dry, Skin is normal, Skin temperature is warm. Musculoskeletal: Range of motion: intact in all extremities. 10:15 TNKase (Tenecteplase) Screening: Indications: Treatment will start within 4.5 hours aa5 onset of symptoms: Yes. No evidence of intracranial hemorrhage or CT of head and no evidence of peripheral hemorrhage or recent CVA: Yes. Consent for thrombolytic therapy: Yes. 10:24 Reassessment: Pt back from CT at this time. AWaiting CTA results prior to TNK ss administration per Dr. Kidd. XRAY at bedside obtaining Chest XRAY. 10:30 Reassessment: TNK on hold per MD THOMAS, awaiting CT head angio. . aa5 10:44 [place] Swallow Protocol Exclusion Criteria: Unable to remain alert for testing: No NPO aa5 for medical/surgical reason by provider order No Tracheostomy tube present No No thin liquids due to preexisting dysphagia/baseline modified diet thickened liquids No Exclusion Criteria Result: Proceed Brief Cognitive Screen What is your name? Normal, Where are you right now? Normal, What year is it? Normal. Oral Mechanism Examination Facial Symmetry: Normal, Motion: Normal, Lip Closure: Normal, Oral Mechanism Result: Normal. 3 oz Water Swallow Challenge: Pt able to drink all water without stopping, coughing, choking or throat clearing: Yes Result: PASS Notified: Karthik Kidd MD. 10:50 Reassessment: See paper chart for complete documentation and NIHSS. . aa5 12:09 Reassessment: Patient states feeling better. Patient states symptoms have improved. aa5 Neuro: Level of Consciousness is awake, alert, obeys commands, Oriented to person, place, time, situation. Respiratory: Airway is patent Respiratory effort is even, unlabored, Respiratory pattern is regular, symmetrical. Derm: Skin is dry, Skin is normal, Skin temperature is warm. 12:17 Reassessment: Report given to Gabriela RN (Triage) Nurse at [facility] ER . aa5 12:39 Neuro: Level of Consciousness is awake, alert, obeys commands, Oriented to person, aa5 place, time, situation. Respiratory: Airway is patent Respiratory effort is even, unlabored, Respiratory pattern is regular, symmetrical. Derm: Skin is dry, Skin is normal, Skin temperature is warm. Vital Signs: 09:52 BP 154 / 72; Pulse 83; Resp 18; Temp 97; Pulse Ox 97% ; Weight 77 kg (M); Pain 0/10; ss 10:50 BP 136 / 70; Pulse 67; Resp 16 S; Temp 97.6(TE); Pulse Ox 98% on R/A; aa5 11:09 BP 137 / 76; Pulse 65; Resp 18 S; Pulse Ox 99% on R/A; aa5 11:24 BP 138 / 73; Pulse 65; aa5 11:39 BP 136 / 72; Pulse 67; Resp 16 S; Pulse Ox 98% on R/A; aa5 11:54 BP 145 / 74; Pulse 66; Resp 16 S; Pulse Ox 97% on R/A; aa5 12:09 BP 140 / 68; Pulse 65; Resp 16 S; Temp 97.5(TE); Pulse Ox 99% on R/A; aa5 12:24 BP 143 / 64; Pulse 64; Resp 18 S; Pulse Ox 98% on R/A; aa5 09:52 Pain Scale: Adult ss NIH Stroke Scale Scores: 09:43 NIHSS Score: 1 ss 10:00 NIHSS Score: 1 aa5 12:09 NIHSS Score: 0 aa5 12:39 NIHSS Score: 0 aa5 ED Course: 09:42 Patient arrived in ED. im 09:44 Karthik Kidd MD is Attending Physician. sp3 09:52 Arm band placed on right wrist. ss 09:52 Patient has correct armband on for positive identification. Placed in gown. Bed in low ss position. Call light in reach. Side rails up X 1. environmental monitoring technician on. Pulse ox on. NIBP on. Warm blanket given. 09:54 CT Stroke Brain w/o Contrast In Process Unspecified. EDMS 09:57 Zo Cabrera, RN is Primary Nurse. aa5 10:02 Inserted saline lock: 20 gauge in right antecubital area, using aseptic technique. ss Blood collected. Flushed with 10 mL NS. 10:03 Inserted saline lock: 18 gauge in left antecubital area, using aseptic technique. ss ,using aseptic technique. Insertion by HUSAM Pathak Flushed with 10 mL NS. 10:10 Triage completed. ss 10:21 CT Head Angio In Process Unspecified. EDMS 10:22 CT Neck Angio In Process Unspecified. EDMS 10:29 Stroke CXR 1 View In Process Unspecified. EDMS 10:30 EKG done, by ED staff, reviewed by Karthik Kidd MD. aa5 10:54 called [facility] for transfer no answer. sp 10:58 called [facility] for transfer talked to Jessica. sp 12:39 No provider procedures requiring assistance completed. Patient transferred, IV remains aa5 in place. Administered Medications: 10:54 Drug: TNK FOR STROKE - Tenecteplase IV (Administer 10 ml NS flush BEFORE and ss AFTER tenecteplase) 20 mg IV at per protocol once; 0.25mg/kg, MAX DOSE 25 mg, IVP over 5 seconds {Co-Signature: aa5 (Zo Cabrera RN).} Route: IV; Rate: per protocol; Site: right antecubital; Medication: 09:52 VIS not applicable for this client. ss Outcome: 10:53 ER care complete, transfer ordered by . sp3 12:40 Transferred by ground EMS to [facility], Transfer form completed. aa5 X-rays sent w/ patient. Note: Report given to [facility]. 12:40 Condition: stable 12:40 Instructed on the need for transfer, Demonstrated understanding of instructions, 12:41 Patient left the ED. aa5 NIH Stroke Scale - NIH Stroke Score Date: 01/29/2025 Time: 09:43 Total Score = 1 10. Dysarthria (speech clarity - read or repeat words) - 1(Mild to Moderate) 11. Extinction and Inattention (visual/tactile/auditory/spatial/personal) - 0(No abnormality) 1a. Level of Consciousness (LOC) - 0(Alert) 1b. Level of Consciousness (LOC) (Month \T\ Age) - 0(Both) 1c. LOC Commands (Open \T\ Closes Eyes/Extension Work Instructor) - 0(Both) 2. Best Gaze (Lateral Gaze Paresis) - 0(Normal) 3. Visual Field Loss - 0(No visual loss) 4. Facial Palsy - 0(Normal) 5a. Left Arm: Motor (10-second hold) - 0(No drift) 5b. Right Arm: Motor (10-second hold) - 0(No drift) 6a. Left Leg: Motor (5-second hold - always test supine) - 0(No drift) 6b. Right Leg: Motor (5-second hold - always test supine) - 0(No drift) 7. Limb Ataxia (finger/nose \T\ heel/rothman - test with eyes open) - 0(Absent) 8. Sensory Loss (pinprick arms/legs/face) - 0(Normal) 9. Best Language: Aphasia (description/naming/reading) - 0(No aphasia) Initials: NIH Stroke Scale - NIH Stroke Score Date: 01/29/2025 Time: 10:00 Total Score = 1 10. Dysarthria (speech clarity - read or repeat words) - 1(Mild to Moderate) 11. Extinction and Inattention (visual/tactile/auditory/spatial/personal) - 0(No abnormality) 1a. Level of Consciousness (LOC) - 0(Alert) 1b. Level of Consciousness (LOC) (Month \T\ Age) - 0(Both) 1c. LOC Commands (Open \T\ Closes Eyes/Extension Work Instructor) - 0(Both) 2. Best Gaze (Lateral Gaze Paresis) - 0(Normal) 3. Visual Field Loss - 0(No visual loss) 4. Facial Palsy - 0(Normal) 5a. Left Arm: Motor (10-second hold) - 0(No drift) 5b. Right Arm: Motor (10-second hold) - 0(No drift) 6a. Left Leg: Motor (5-second hold - always test supine) - 0(No drift) 6b. Right Leg: Motor (5-second hold - always test supine) - 0(No drift) 7. Limb Ataxia (finger/nose \T\ heel/rothman - test with eyes open) - 0(Absent) 8. Sensory Loss (pinprick arms/legs/face) - 0(Normal) 9. Best Language: Aphasia (description/naming/reading) - 0(No aphasia) Initials: aa5 NIH Stroke Scale - NIH Stroke Score Date: 01/29/2025 Time: 12:09 Total Score = 0 10. Dysarthria (speech clarity - read or repeat words) - 0(Normal) 11. Extinction and Inattention (visual/tactile/auditory/spatial/personal) - 0(No abnormality) 1a. Level of Consciousness (LOC) - 0(Alert) 1b. Level of Consciousness (LOC) (Month \T\ Age) - 0(Both) 1c. LOC Commands (Open \T\ Closes Eyes/Extension Work Instructor) - 0(Both) 2. Best Gaze (Lateral Gaze Paresis) - 0(Normal) 3. Visual Field Loss - 0(No visual loss) 4. Facial Palsy - 0(Normal) 5a. Left Arm: Motor (10-second hold) - 0(No drift) 5b. Right Arm: Motor (10-second hold) - 0(No drift) 6a. Left Leg: Motor (5-second hold - always test supine) - 0(No drift) 6b. Right Leg: Motor (5-second hold - always test supine) - 0(No drift) 7. Limb Ataxia (finger/nose \T\ heel/rothman - test with eyes open) - 0(Absent) 8. Sensory Loss (pinprick arms/legs/face) - 0(Normal) 9. Best Language: Aphasia (description/naming/reading) - 0(No aphasia) Initials: aa5 NIH Stroke Scale - NIH Stroke Score Date: 01/29/2025 Time: 12:39 Total Score = 0 10. Dysarthria (speech clarity - read or repeat words) - 0(Normal) 11. Extinction and Inattention (visual/tactile/auditory/spatial/personal) - 0(No abnormality) 1a. Level of Consciousness (LOC) - 0(Alert) 1b. Level of Consciousness (LOC) (Month \T\ Age) - 0(Both) 1c. LOC Commands (Open \T\ Closes Eyes/Extension Work Instructor) - 0(Both) 2. Best Gaze (Lateral Gaze Paresis) - 0(Normal) 3. Visual Field Loss - 0(No visual loss) 4. Facial Palsy - 0(Normal) 5a. Left Arm: Motor (10-second hold) - 0(No drift) 5b. Right Arm: Motor (10-second hold) - 0(No drift) 6a. Left Leg: Motor (5-second hold - always test supine) - 0(No drift) 6b. Right Leg: Motor (5-second hold - always test supine) - 0(No drift) 7. Limb Ataxia (finger/nose \T\ heel/orthman - test with eyes open) - 0(Absent) 8. Sensory Loss (pinprick arms/legs/face) - 0(Normal) 9. Best Language: Aphasia (description/naming/reading) - 0(No aphasia) Initials: aa5 Signatures: Dispatcher [employer] EDMS Anisha Berkowitz Audri, RN RN aa5 Mariana Bucio RN RN Karthik Kidd MD MD sp3 Tiffani Latham Zo Cabrera RN aa5 Corrections: (The following items were deleted from the chart) 10:00 09:52 VAN Scoring: Arm Drift: Patients demonstrates NO arm weakness. Patient is ss VAN Negative. Visual Disturbance: No visual disturbance noted. Aphasia: No aphasia noted. Neglect: No neglect noted. 10:00 09:52 NIHSS Score: 1 [facility] 10:20 09:52 Reassessment: Pt back from CT at this time. Dr. Kidd at bedside ss discussing Plan of care, possible TNK administration including risks
--- NOTE | 2025-01-29 10:54 | EDPHYS ---
Physician Documentation [facility] Name: Bong Hanson Age: 74 yrs Sex: Male : 1950 Arrival Date: 01/29/2025 Time: 09:42 Bed 7 Private MD: ED Physician Karthik Kidd HPI: 01/29 10:16 This 74 yrs old Black Male presents to ER via Ambulatory with complaints of Slurred sp3 Speech. 10:16 74-year-old male with history of hyperlipidemia, hypertension, prior prostate cancer sp3 greater than 10 years ago with no evidence of disease currently and no prior TIA/stroke diagnosis or neurosurgical procedures or any intracranial pathology now presents to the ED with chief complaint slurred speech while at restorationism that occurred approximately 20 minutes prior to arrival. Possible facial droop also reported on the left side. No other weakness reported. ROS negative for headache, neck pain, chest pain, shortness of breath, abdominal pain, nausea, vomiting, diarrhea, or any other signs or symptoms on ROS at this time.. Historical: - Allergies: 10:00 No Known Allergies; ss - Home Meds: 12:10 amlodipine 5 mg oral tablet daily [Active]; valsartan 160 mg oral tablet daily aa5 [Active]; atorvastatin 20 mg oral tablet daily [Active]; tadalafil 5 mg oral tablet daily [Active]; - PMHx: 10:00 Hyperlipidemia; Hypertension; ss - PSHx: 10:00 Cholecystectomy; Appendectomy; prostatectomy; ss 12:13 ear (w/metal); aa5 - Infectious Disease History:: Denies. - Social history:: Smoking status: Patient denies any tobacco usage or history of. ROS: 10:17 Constitutional: Negative for fever, chills, and weight loss, Eyes: Negative for injury, sp3 pain, redness, and discharge, ENT: Negative for injury, pain, and discharge, Neck: Negative for injury, pain, and swelling, Cardiovascular: Negative for chest pain, palpitations, and edema, Respiratory: Negative for shortness of breath, cough, wheezing, and pleuritic chest pain, Abdomen/GI: Negative for abdominal pain, nausea, vomiting, diarrhea, and constipation, Back: Negative for injury and pain, MS/Extremity: Negative for injury and deformity, Skin: Negative for injury, rash, and discoloration, Psych: Negative for depression, anxiety, suicide ideation, homicidal ideation, and hallucinations, Allergy/Immunology: Negative for hives, rash, and allergies, Endocrine: Negative for neck swelling, polydipsia, polyuria, polyphagia, and marked weight changes, Hematologic/Lymphatic: Negative for swollen nodes, abnormal bleeding, and unusual bruising, 10:17 All other systems are negative, Exam: 10:18 Constitutional: This is a well developed, well nourished patient who is awake, alert, sp3 and in no acute distress. Head/Face: Normocephalic, atraumatic. Eyes: Pupils equal round and reactive to light, extra-ocular motions intact. Lids and lashes normal. Conjunctiva and sclera are non-icteric and not injected. Cornea within normal limits. Periorbital areas with no swelling, redness, or edema. Neck: Trachea midline, no thyromegaly or masses palpated, and no cervical lymphadenopathy. Supple, full range of motion without nuchal rigidity, or vertebral point tenderness. No Meningismus. Chest/axilla: Normal chest wall appearance and motion. Nontender with no deformity. No lesions are appreciated. Cardiovascular: Regular rate and rhythm with a normal S1 and S2. No gallops, murmurs, or rubs. Normal PMI, no JVD. No pulse deficits. Respiratory: Lungs have equal breath sounds bilaterally, clear to auscultation and percussion. No rales, rhonchi or wheezes noted. No increased work of breathing, no retractions or nasal flaring. Abdomen/GI: Soft, non-tender, with normal bowel sounds. No distension or tympany. No guarding or rebound. No evidence of tenderness throughout. Back: No spinal tenderness. No costovertebral tenderness. Full range of motion. Skin: Warm, dry with normal turgor. Normal color with no rashes, no lesions, and no evidence of cellulitis. MS/ Extremity: Pulses equal, no cyanosis. Neurovascular intact. Full, normal range of motion. Psych: Awake, alert, with orientation to person, place and time. Behavior, mood, and affect are within normal limits. 10:18 Neuro: Mild slurred speech still present. No facial droop noted. Remainder of neurological exam is negative., 10:37 ECG was reviewed by the Attending Physician. EKG demonstrates normal sinus rhythm at 82 sp3 bpm with normal intervals, normal QRS, normal axis, normal ST/T-segment's without evidence of acute ischemia. Vital Signs: 09:52 BP 154 / 72; Pulse 83; Resp 18; Temp 97; Pulse Ox 97% ; Weight 77 kg (M); Pain 0/10; ss 10:50 BP 136 / 70; Pulse 67; Resp 16 S; Temp 97.6(TE); Pulse Ox 98% on R/A; aa5 11:09 BP 137 / 76; Pulse 65; Resp 18 S; Pulse Ox 99% on R/A; aa5 11:24 BP 138 / 73; Pulse 65; aa5 11:39 BP 136 / 72; Pulse 67; Resp 16 S; Pulse Ox 98% on R/A; aa5 11:54 BP 145 / 74; Pulse 66; Resp 16 S; Pulse Ox 97% on R/A; aa5 12:09 BP 140 / 68; Pulse 65; Resp 16 S; Temp 97.5(TE); Pulse Ox 99% on R/A; aa5 12:24 BP 143 / 64; Pulse 64; Resp 18 S; Pulse Ox 98% on R/A; aa5 09:52 Pain Scale: Adult ss NIH Stroke Scale Scores: 09:43 NIHSS Score: 1 ss 10:00 NIHSS Score: 1 aa5 12:09 NIHSS Score: 0 aa5 12:39 NIHSS Score: 0 aa5 MDM: 09:45 Medical Screening Exam initiated sp3 10:18 Data reviewed: vital signs, nurses notes, lab test result(s), EKG, radiologic studies. sp3 ED course: Stroke alert called from triage. Patient went to CT and was found to have a small area of hypoattenuation of indeterminate age. Vital signs are normal. I discussed TNKase with family in terms of therapeutic effect versus side effect. I have also discussed the case with Dr. Tovar who agrees on administration and assuming no other findings on CT angiograms. Will formally consent patient and administer medications once he is back from CT and it has been read. Labs and EKG still pending.. 10:52 ED course: CT angiograms demonstrate no large vessel occlusion or other abnormality. We sp3 will go ahead and administer TNKase and subsequently transferred to [place].. 11:05 ED course: Discussed with [facility] neuro ICU who have graciously accepted sp3 this patient.. 01/29 09:45 Order name: Basic Metabolic Panel; Complete Time: 10:42 sp3 01/29 09:45 Order name: CBC with Diff; Complete Time: 10:42 sp3 01/29 09:45 Order name: Hepatic Function; Complete Time: 10:42 sp3 01/29 09:45 Order name: High Sensitivity Troponin; Complete Time: 10:42 sp3 01/29 09:45 Order name: Magnesium; Complete Time: 10:42 sp3 01/29 09:45 Order name: Protime (+inr); Complete Time: 10:42 sp3 01/29 09:45 Order name: Ptt, Activated; Complete Time: 10:42 sp3 01/29 10:18 Order name: Glucose, Ancillary Testing; Complete Time: 10:42 EDMS 01/29 09:45 Order name: CT Head Angio; Complete Time: 10:49 sp3 01/29 09:45 Order name: CT Neck Angio; Complete Time: 11:03 sp3 01/29 09:45 Order name: CT Stroke Brain w/o Contrast; Complete Time: 10:04 sp3 01/29 09:45 Order name: Stroke CXR 1 View; Complete Time: 11:16 sp3 01/29 09:45 Order name: Cardiac monitoring; Complete Time: 10:05 sp3 01/29 09:45 Order name: EKG - Nurse/Tech; Complete Time: 10:38 sp3 01/29 09:45 Order name: IV Saline Lock; Complete Time: 10:05 3 01/29 09:45 Order name: Labs collected and sent; Complete Time: 10:05 sp3 01/29 09:45 Order name: NPO; Complete Time: 10:05 sp3 01/29 09:45 Order name: O2 Per Protocol; Complete Time: 10:05 3 01/29 09:45 Order name: O2 Sat Monitoring; Complete Time: 10:05 sp3 01/29 09:45 Order name: Stroke Swallow Screen; Complete Time: 10:56 sp3 Administered Medications: 10:54 Drug: TNK FOR STROKE - Tenecteplase IV (Administer 10 ml NS flush BEFORE and ss AFTER tenecteplase) 20 mg IV at per protocol once; 0.25mg/kg, MAX DOSE 25 mg, IVP over 5 seconds {Co-Signature: aa5 (Zo Cabrera RN).} Route: IV; Rate: per protocol; Site: right antecubital; Disposition Summary: 01/29/25 10:53 Transfer Ordered Notes: Transfer Location: [facility] sp3 Reason: Higher level of care sp3 Condition: Stable sp3 Problem: new sp3 Symptoms: are unchanged sp3 Accepting Physician: [facility] neurological ICU(01/29/25 12:41) aa5 Diagnosis - Acute CVA status post thrombolytics sp3 Forms: - Medication Reconciliation Form sp3 - SBAR form sp3 Critical care time excluding procedures: 10:19 Critical care time: Bedside Care: 15 minutes, Consultation: 10 minutes, Family sp3 Intervention: 10 minutes. Total time: 35 minutes NIH Stroke Scale - NIH Stroke Score Date: 01/29/2025 Time: 09:43 Total Score = 1 10. Dysarthria (speech clarity - read or repeat words) - 1(Mild to Moderate) 11. Extinction and Inattention (visual/tactile/auditory/spatial/personal) - 0(No abnormality) 1a. Level of Consciousness (LOC) - 0(Alert) 1b. Level of Consciousness (LOC) (Month \T\ Age) - 0(Both) 1c. LOC Commands (Open \T\ Closes Eyes/Vb Developer) - 0(Both) 2. Best Gaze (Lateral Gaze Paresis) - 0(Normal) 3. Visual Field Loss - 0(No visual loss) 4. Facial Palsy - 0(Normal) 5a. Left Arm: Motor (10-second hold) - 0(No drift) 5b. Right Arm: Motor (10-second hold) - 0(No drift) 6a. Left Leg: Motor (5-second hold - always test supine) - 0(No drift) 6b. Right Leg: Motor (5-second hold - always test supine) - 0(No drift) 7. Limb Ataxia (finger/nose \T\ heel/rothman - test with eyes open) - 0(Absent) 8. Sensory Loss (pinprick arms/legs/face) - 0(Normal) 9. Best Language: Aphasia (description/naming/reading) - 0(No aphasia) Initials: ss NIH Stroke Scale - NIH Stroke Score Date: 01/29/2025 Time: 10:00 Total Score = 1 10. Dysarthria (speech clarity - read or repeat words) - 1(Mild to Moderate) 11. Extinction and Inattention (visual/tactile/auditory/spatial/personal) - 0(No abnormality) 1a. Level of Consciousness (LOC) - 0(Alert) 1b. Level of Consciousness (LOC) (Month \T\ Age) - 0(Both) 1c. LOC Commands (Open \T\ Closes Eyes/Vb Developer) - 0(Both) 2. Best Gaze (Lateral Gaze Paresis) - 0(Normal) 3. Visual Field Loss - 0(No visual loss) 4. Facial Palsy - 0(Normal) 5a. Left Arm: Motor (10-second hold) - 0(No drift) 5b. Right Arm: Motor (10-second hold) - 0(No drift) 6a. Left Leg: Motor (5-second hold - always test supine) - 0(No drift) 6b. Right Leg: Motor (5-second hold - always test supine) - 0(No drift) 7. Limb Ataxia (finger/nose \T\ heel/rothman - test with eyes open) - 0(Absent) 8. Sensory Loss (pinprick arms/legs/face) - 0(Normal) 9. Best Language: Aphasia (description/naming/reading) - 0(No aphasia) Initials: aa5 NIH Stroke Scale - NIH Stroke Score Date: 01/29/2025 Time: 12:09 Total Score = 0 10. Dysarthria (speech clarity - read or repeat words) - 0(Normal) 11. Extinction and Inattention (visual/tactile/auditory/spatial/personal) - 0(No abnormality) 1a. Level of Consciousness (LOC) - 0(Alert) 1b. Level of Consciousness (LOC) (Month \T\ Age) - 0(Both) 1c. LOC Commands (Open \T\ Closes Eyes/Vb Developer) - 0(Both) 2. Best Gaze (Lateral Gaze Paresis) - 0(Normal) 3. Visual Field Loss - 0(No visual loss) 4. Facial Palsy - 0(Normal) 5a. Left Arm: Motor (10-second hold) - 0(No drift) 5b. Right Arm: Motor (10-second hold) - 0(No drift) 6a. Left Leg: Motor (5-second hold - always test supine) - 0(No drift) 6b. Right Leg: Motor (5-second hold - always test supine) - 0(No drift) 7. Limb Ataxia (finger/nose \T\ heel/rothman - test with eyes open) - 0(Absent) 8. Sensory Loss (pinprick arms/legs/face) - 0(Normal) 9. Best Language: Aphasia (description/naming/reading) - 0(No aphasia) Initials: aa5 NIH Stroke Scale - NIH Stroke Score Date: 01/29/2025 Time: 12:39 Total Score = 0 10. Dysarthria (speech clarity - read or repeat words) - 0(Normal) 11. Extinction and Inattention (visual/tactile/auditory/spatial/personal) - 0(No abnormality) 1a. Level of Consciousness (LOC) - 0(Alert) 1b. Level of Consciousness (LOC) (Month \T\ Age) - 0(Both) 1c. LOC Commands (Open \T\ Closes Eyes/Vb Developer) - 0(Both) 2. Best Gaze (Lateral Gaze Paresis) - 0(Normal) 3. Visual Field Loss - 0(No visual loss) 4. Facial Palsy - 0(Normal) 5a. Left Arm: Motor (10-second hold) - 0(No drift) 5b. Right Arm: Motor (10-second hold) - 0(No drift) 6a. Left Leg: Motor (5-second hold - always test supine) - 0(No drift) 6b. Right Leg: Motor (5-second hold - always test supine) - 0(No drift) 7. Limb Ataxia (finger/nose \T\ heel/rothman - test with eyes open) - 0(Absent) 8. Sensory Loss (pinprick arms/legs/face) - 0(Normal) 9. Best Language: Aphasia (description/naming/reading) - 0(No aphasia) Initials: aa5 Signatures: Dispatcher [employer] Zo Aldana RN RN aa5 Mariana uBcio RN RN Karthik Kidd MD MD sp3 Zo Cabrera RN aa5 Corrections: (The following items were deleted from the chart) 09:46 09:46 BASIC METABOLIC PANEL+C.LAB.BRZ ordered. EDMS EDMS 09:46 09:46 CBC+H.LAB.BRZ ordered. EDMS EDMS 09:46 09:46 HEPATIC FUNCTION+C.LAB.BRZ ordered. EDMS EDMS 09:46 09:46 Troponin High Sensitivity+C.LAB.BRZ ordered. EDMS EDMS 09:46 09:46 MAGNESIUM+C.LAB.BRZ ordered. EDMS EDMS 09:46 09:46 PROTIME (+INR)+COAG.LAB.BRZ ordered. EDMS EDMS 09:46 09:46 PTT, ACTIVATED+COAG.LAB.BRZ ordered. EDMS EDMS 09:46 09:46 Head Angio+CT.RAD.BRZ ordered. EDMS EDMS 09:46 09:46 Neck Angio+CT.RAD.BRZ ordered. EDMS EDMS 09:46 09:46 CT-STROKE BRAIN W/O CONTRAST+CT.RAD.BRZ ordered. EDMS EDMS 09:46 09:46 Chest Single View+RAD.RAD.BRZ ordered. EDMS EDMS 12:41 10:53 TBD neurological ICU sp3 aa5
--- NOTE | 2025-01-29 11:00 | RAD REPORT ---
EXAMINATION: CT Neck Angio CLINICAL INDICATION: Male, 74 years old. Slurred speech stroke alert Bed Name: 7 TECHNIQUE: Axial CT images were obtained from the aortic arch to the skull base after intravenous con trast utilizing angiographic protocol. Multiplanar reformats, as well as 3D post-processing (maximum intensity projection images, volume rendered images and/or shaded surface rendered images) w ere generated and reviewed. One or more of the following dose reduction techniques were used: Automated exposure control, adjustment of the mA and/or kV according to patient size, and/or iterativ e reconstruction. Unless otherwise specified, incidental findings do not require dedicated imaging follow-up. COMPARISON: No prior exam. FINDINGS: AORTA: The imaged aortic arch is normal. Normal three-vessel configuration of the arch. CCA: No artifact The common carotid arteries are patent and normal in caliber. ICA/ECA: Bilateral internal and external carotid arteries are patent. There is no significant interna l carotid artery stenosis. VERTEBRAL: The cervical vertebral arteries are patent to the skull base. Vertebral arteries are codom inant. SOFT TISSUE: Polypoidal mucosal throughout the paranasal sinuses. No significant neck soft tissue abn ormalities. The visualized lung apices are clear. 3D images confirm these findings. IMPRESSION: No significant flow abnormality of the neck vessels is identified. NASCET criteria used to quantify ICA stenosis, with the following grading scheme: Mild 0-49% stenosis Moderate 50-69% stenosis Severe 70-99% stenosis Reference: [place] Symptomatic Carotid Endarterectomy Trial Collaborators; Marcy CHAUDHARI, Leesa PRATHER, Leonard RB, et al. Beneficial effect of carotid endarterectomy in symptomatic patients with high-grade carotid stenosis. N Engl J Med. 1990Jun 23;325(7):445-53.
--- NOTE | 2025-01-29 11:15 | RAD REPORT ---
EXAMINATION: ONE VIEW CHEST XR CLINICAL INDICATION: Male, 74 years old.,stroke alert TECHNIQUE: Frontal chest projection is submitted. Examination is limited by patient positioning and t echnique. COMPARISON: 10/14/2019 FINDINGS: The lungs are well inflated and clear. No pneumothorax or sizable effusion. The heart is normal in s ize. Mediastinal contours are unremarkable. IMPRESSION: No acute intrathoracic abnormalities.
[2025-01-29 13:16] VITALS: TEMP 97.5
[2025-01-29 13:17] VITALS: BP 143/64; O2SAT 98
--- NOTE | 2025-01-30 12:02 | EKG ---
Test Date: 2025-01-29 Test Time: 10:26:08 Drag Down: NEMESIO MEASUREMENT RESULTS: Intervals: Rate: 82 CT: 150 QRSD: 84 QT: 384 QTc: 448 [place]: P: 65 CT: 150 QRS: 1 T: 40 INTERPRETIVE STATEMENTS: Normal sinus rhythm Normal ECG Compared to ECG 12/31/2022 08:28:28 No significant changes Electronically Signed On 01-30-25 11:59:45 CDT by Micheal Dale
== END 2025-01-29 12:41 | disposition short-term general hospital (02) ==
LOC: ER 09:42
DX: I63.9 Cerebral infarction, unspecified (principal); I10 Essential (primary) hypertension; R29.701 NIHSS score 1; E78.5 Hyperlipidemia, unspecified
CPT/HCPCS: 92977; 93005; 85025; 80048; 36415; 83735; 85610; 82947; 80076; 85730; 84484; 70496; 70498; 70450; 71045; 96374; 99285; Q9967; J3101